=== PATIENT | male | born 1975 | race Caucasian/White ===

== ENCOUNTER 2017-05-09 18:45 | Emergency (ER) | payer OTHER ==
[~2017-05-09] VITALS: Ht 182.9 cm; Wt 77.3 kg
[~2017-05-09 18:45] MED LIST: FLONASE NASAL S16 GM NS; ZESTRIL2.5 MG PO
[2017-05-09] MEDS ORDERED: FLONASE ALLERG9.9 ML NS (18:58)
[2017-05-09 19:42] VITALS: BP 154/89
== END 2017-05-09 19:42 | disposition home or self-care (01) ==
LOC: ED 18:45
DX: S61.210A Laceration without foreign body of right index finger without damage to nail, initial encounter (principal); W26.0XXA Contact with knife, initial encounter; Y92.009 Unspecified place in unspecified non-institutional (private) residence as the place of occurrence of the external cause; I10 Essential (primary) hypertension
CPT/HCPCS: 90715; A4550

== ENCOUNTER 2020-12-21 00:45 | Emergency (ER) | payer OTHER ==
[~2020-12-21 00:45] MED LIST changes: +FLONASE ALLERG9.9 ML NS
[2020-12-21] MEDS ORDERED: PRAVASTATIN SOD20 MG PO (01:30)
[2020-12-21 02:00] LABS: BASO # 0.05 (0.02-0.10); EOS # 0.25 (0.04-0.40); EOS % 1.6 % (0.0-4.0); HEMATOCRIT 48.9 % (42.0-52.0); HEMOGLOBIN 16.4 g/dL (13.5-18.0); MEAN CELL VOLUME 87 fl (78-100); MEAN CORPUSCULAR HEMOGLOBIN 29 pg (27-31); MEAN CORPUSCULAR HGB CONC 34 g/dL (33-37); MEAN PLATELET VOLUME 9.9 fl (7.4-10.4); NEU # 12.11 (1.40-6.50); PLATELET COUNT 225 K/mm3 (130-400); RED BLOOD COUNT 5.64 M/mm3 (4.20-5.60); RED CELL DISTRIBUTION WIDTH 12.6 % (11.5-14.5)
[2020-12-21 02:12] LABS: ALBUMIN 4.3 g/dL (3.5-5.0); POTASSIUM 4.5 mmol/L (3.5-5.1)
[2020-12-21 02:13] LABS: CALCIUM 9.9 mg/dL (8.3-10.5)
[2020-12-21 02:14] LABS: TOTAL PROTEIN 6.8 g/dL (6.4-8.3)
[2020-12-21 02:16] LABS: TOTAL BILIRUBIN 0.3 mg/dL (0.2-1.2)
[2020-12-21 02:26] LABS: URINE APPEARANCE CLEAR; URINE COLOR YELLOW; URINE PROTEIN(semi-quant) TRACE mg/dL (NEGATIVE)
[2020-12-21 02:27] LABS: URINE BILIRUBIN NEGATIVE (NEGATIVE); URINE BLOOD NEGATIVE (NEGATIVE); URINE GLUCOSE NEGATIVE (NEGATIVE); URINE KETONE NEGATIVE (NEGATIVE); URINE LEUKOCYTE ESTERASE NEGATIVE (NEGATIVE); URINE MUCUS PRESENT (NOT PRESENT); URINE NITRATE NEGATIVE (NEGATIVE); URINE UROBILINOGEN NORMAL (NORMAL); URINE WBC 0-1 /hpf (0-3)
[2020-12-21 04:26] VITALS: BP 132/82
== END 2020-12-21 04:42 | disposition home or self-care (01) ==
LOC: ED 00:45
PROVIDERS: Nurse Practitioner Family
DX: S09.90XA Unspecified injury of head, initial encounter (principal); M25.561 Pain in right knee; M25.571 Pain in right ankle and joints of right foot; D72.829 Elevated white blood cell count, unspecified; E86.0 Dehydration; R55 Syncope and collapse; E78.5 Hyperlipidemia, unspecified; Z79.899 Other long term (current) drug therapy; X58.XXXA Exposure to other specified factors, initial encounter
CPT/HCPCS: J7030

== ENCOUNTER → 2021-01-09 | Outpatient (CLI) | payer OTHER ==
[~2021-01-09] MED LIST changes: +PRAVASTATIN SOD20 MG PO
== END ==
LOC: RAD 13:43
DX: R55 Syncope and collapse (principal); R94.31 Abnormal electrocardiogram [ECG] [EKG]

== ENCOUNTER → 2021-11-18 | Day surgery (SDC) | payer OTHER | LOC: MSO 08:40 | DX: Z12.11 Encounter for screening for malignant neoplasm of colon (principal) | CPT/HCPCS: 00812; J2704; J7120 ==